=== PATIENT | female | born 1970 | race Two or more races ===

== ENCOUNTER 2018-05-24 21:17 | Inpatient (IN) | END 2018-05-28 18:07 | disposition home or self-care (01) | DRG 807 ==

== ENCOUNTER 2019-01-14 19:45 | Emergency (ER) | payer MEDICAID ==
[~2019-01-14] VITALS: Wt 80.0 kg
[~2019-01-14 19:45] MED LIST: LEVO50TA7 PO
[2019-01-14 23:07] VITALS: BP 122/68; PULSE 82; RESP 16
--- NOTE | 2019-01-15 06:17 | ERD ---
ER Documentation Chief Complaint Chief Complaint vaginal discharge today and 9wks preg. no bleeding no cramping. HPI 48yo 9wks F presents to the ED with complaint of vaginal spotting x 1 day. Pt states to have wiped earlier today and notes spotting, denies clots, pelvic pain, dysuria, or hematuria. No vomiting, diarrhea, or abdominal pain. Denies use or need for pads or tampons. She notes she is current with her pre care, with no complications until now. Pt is otherwise asymptomatic and presents to ensure not complications with d/t spotting. ROS All systems reviewed and are negative except as per history of present illness. Medications Home Meds Reported Medications Levothyroxine Sodium* (Levothyroxine Sodium*) 50 Mcg Tablet, 50 MCG PO BEFORE BREAKFAST, #30 TAB 05/24/18 Allergies Allergies: Coded Allergies: No Known Allergy (Unverified , 05/24/18) PMhx/Soc Medical and Surgical Hx: pt denies Medical Hx, pt denies Surgical Hx Hx Alcohol Use: No Hx Substance Use: No Hx Tobacco Use: No Smoking Status: Never smoker FmHx Family History: No diabetes, No coronary disease, No other Physical Exam Vitals Vital Signs Date Temp Pulse Resp B/P (MAP) Pulse Ox O2 O2 Flow FiO2 Time Delivery Rate 01/14/19 98.6 82 16 122/68 98 Room Air 23:07 (86) 01/14/19 98.1 65 18 125/71 98 19:50 (89) Physical Exam GENERAL: Alert and coherent. Well appearing, non-toxic. No acute distress. HEAD: Normocephalic, atraumatic. EYES: EOMI. PERRL. No conjunctival injection. No scleral icterus. No Discharge NECK: Supple. Full range of motion. Trachea midline. RESPIRATORY: No tachypnea. Clear to auscultation bilaterally. No wheezing, rales or rhonchi. No accessory muscle use. CV: Regular rate and rhythm. No murmurs, rubs, or gallops. ABDOMEN: Soft, non-distended, non-tender. No guarding. No rebound tenderness or rigidity. No masses. Positive bowel sounds in all four quadrants. BACK: Full ROM. No CVA tenderness. EXTREMITIES: No deformity. No clubbing, cyanosis or edema. Equal pulses x 4. SKIN: Warm and dry. No obvious rashes, erythema, or petechiae. NEUROLOGIC: Alert and oriented x3. Appropriate speech, mood and affect. Face is symmetric. Speech is normal. CN II-XII intact. Moves all extremities equally. Ambulates with a strong, steady gait. Result Diagram: 01/14/19212401/14/192124 Results 24 hrs Laboratory Tests Test 01/14/19 21:25 White Blood Count 4.5 10^3/ul Red Blood Count 4.20 10^6/ul Hemoglobin 13.2 g/dl Hematocrit 38.6 % Mean Corpuscular Volume 91.9 fl Mean Corpuscular Hemoglobin 31.4 pg Mean Corpuscular Hemoglobin Concent 34.2 g/dl Red Cell Distribution Width 13.3 % Platelet Count 284 10^3/UL Mean Platelet Volume 9.0 fl Immature Granulocytes % 0.400 % Neutrophils % 50.6 % Lymphocytes % 36.8 % Monocytes % 8.4 % Eosinophils % 2.7 % Basophils % 1.1 % Nucleated Red Blood Cells % 0.0 /100WBC Immature Granulocytes # 0.020 10^3/ul Neutrophils # 2.3 10^3/ul Lymphocytes # 1.7 10^3/ul Monocytes # 0.4 10^3/ul Eosinophils # 0.1 10^3/ul Basophils # 0.1 10^3/ul Nucleated Red Blood Cells # 0.0 10^3/ul Prothrombin Time 12.1 Sec Prothrombin Time Ratio 0.9 INR International Normalized Ratio 0.89 Activated Partial Thromboplast Time 23.9 Sec Urine Color YELLOW Urine Clarity SLIGHTLY CLOUDY Urine pH 6.0 Urine Specific [place] 1.025 Urine Ketones NEGATIVE mg/dL Urine Nitrite NEGATIVE mg/dL Urine Bilirubin NEGATIVE mg/dL Urine Urobilinogen NEGATIVE mg/dL Urine Leukocyte Esterase NEGATIVE [place]/ul Urine Microscopic RBC 1 /HPF Urine Microscopic WBC 3 /HPF Urine Squamous Epithelial Cells FEW /HPF Urine Hemoglobin 1+ mg/dL Urine Glucose NEGATIVE mg/dL Urine Total Protein NEGATIVE mg/dl Urine Test POSITIVE Sodium Level 140 mmol/L Potassium Level 3.6 mmol/L Chloride Level 103 mmol/L Carbon Dioxide Level 27 mmol/L Anion Gap 10 Blood Urea Nitrogen 16 mg/dl Creatinine 0.73 mg/dl Est Glomerular Filtrat Rate mL/min > 60 mL/min Glucose Level 99 mg/dl Calcium Level 9.9 mg/dl Beta HCG, Quantitative 54572.0 mIU/ml Procedures/MDM PROCEDURE: US OB. FINDINGS: A single intrauterine gestational sac is evident. A yolk sac is evident. [place]-rump length: 2.3 cm Gestational sac diameter: 2.3 cm heart rate: 168 beats per minute. Ultrasound estimated gestational age: 9 weeks 0 days No ovarian or adnexal mass lesion is seen. There is no free fluid. Corpus luteum. IMPRESSION: 1. Single live intrauterine with an estimated gestational age of 9 weeks 0 days. This yields an estimated due date of 08/19/2019, concordant with menstrual dates. MDM: 48yo 9wk female presents to ED for evaluation of vaginal spotting x 1 day. Patient is well-appearing, in no distress, non-toxic.In ED patient is hemodynamically stable, no further bleeding or abdo pain. Ultrasound obtained and did not reveal concerning findings for ectopic. US is stable with IUP. Patient was reassured. Laboratory studies were reviewed, stable, Rh A pos. Patient will need to have close follow-up with OB. Threatened miscarriage precautions were given to the pt. Patient remains in no distress, well- appearing, asymptomatic and will be discharged. Differential diagnosis includes but is not limited to spontaneous , threatened , complete , inevitable , ectopic , molar , cervicitis, trauma, ovarian cyst rupture, early intrauterine . Strict ED return precautions discussed. Pt expressed verbal understanding and agreement to treatment plan. All questions addressed and answered. Departure Diagnosis: Primary Impression: Vaginal bleeding in patient at less than 20 weeks ges... Condition: Stable Patient Instructions: Bleeding During Early Referrals: NO PRIMARY,CARE PHYSICIAN (PCP) Additional Instructions: You were seen today for vaginal bleeding. All labs and imaging were negative. At this time you are stable for discharge, however, it is recommended you f/u with you PURCHASING OFFICER for further follow-up and possible work-up. Please return to the ER immediately if you have new or worsening symptoms. MILAGROS CHAN PA-C Jan 15, 2019 06:17
== END 2019-01-14 23:07 | disposition home or self-care (01) ==
LOC: FTE 19:45
DX: O20.9 Hemorrhage in early pregnancy, unspecified (principal); Z3A.09 9 weeks gestation of pregnancy
CPT/HCPCS: 36415; 76801; 80048; 81001; 84702; 84703; 85025; 85610; 85730; 86900; 86901; Z7502

== ENCOUNTER 2019-03-12 06:00 | Inpatient (IN) | payer MEDICAID ==
[~2019-03-12] VITALS: Ht 162.6 cm; Wt 91.3 kg
[2019-03-12 10:40] VITALS: BMI 37.3
[2019-03-12 10:41] VITALS: BP 106/76; PULSE 80; RESP 18
[2019-03-12] MEDS ORDERED: CARBOPROST 250 MCG INJ IM PRN (13:00)
[2019-03-12] MEDS ORDERED: MISOPROSTOL 50 MCG CAPSULE VAG SCH (13:00)
[2019-03-12] MEDS ORDERED: METHYLERGONOVINE 0.2 MG INJ IM PRN (13:00)
[2019-03-12] MEDS ORDERED: MISOPROSTOL 200 MCG TAB VAG PRN (13:00)
[2019-03-12] MEDS ORDERED: MISOPROSTOL 200 MCG TAB PR PRN (13:00)
[2019-03-12] MEDS ORDERED: OXYTOCIN 30 UNITS/LR 500 ML IV SCH ×2 (13:00)
[2019-03-12] MEDS ORDERED: OXYTOCIN 30 UNITS/LR 500 ML IV PRN (13:00)
[2019-03-12] MEDS ORDERED: IBUPROFEN 600 MG TAB PO PRN (13:00)
[2019-03-12] MEDS ORDERED: LIDOCAINE 1% (MPF) 30 ML INJ INJ PRN (13:00)
[2019-03-12] MEDS: LACTATED RINGER'S 1,000 ML IV SCH ×2 (13:29→23:29)
[2019-03-12] MEDS ORDERED: MISOPROSTOL 200 MCG TAB VAG ONE (14:00)
[2019-03-13] MEDS ORDERED: CEFAZOLIN 2 GM/50 ML (PMX) 50 ML IVPB ONE ×2 (03:18→04:00)
[2019-03-13] MEDS ORDERED: OXYTOCIN 30 UNITS/LR 500 ML IV SCH (03:50)
[2019-03-13] MEDS ORDERED: LACTATED RINGER'S 1,000 ML IV* SCH (03:50)
[2019-03-13] MEDS ORDERED: CARBOPROST 250 MCG INJ IM PRN (04:00)
[2019-03-13] MEDS ORDERED: ONDANSETRON 4 MG INJ IV PRN (04:00)
[2019-03-13] MEDS ORDERED: ACETAMINOPHEN 325 MG TAB PO PRN ×2 (04:00)
[2019-03-13] MEDS ORDERED: MISOPROSTOL 200 MCG TAB PR PRN (04:00)
[2019-03-13] MEDS ORDERED: BENZOCAINE 20% 56 ML SPRAY TOP PRN (04:00)
[2019-03-13] MEDS ORDERED: DIBUCAINE 1% 30 GM OINT TOP PRN (04:00)
[2019-03-13] MEDS ORDERED: WITCH HAZEL/GLYCERIN PAD PR PRN (04:00)
[2019-03-13] MEDS ORDERED: MAGNESIUM HYDROXIDE 30ML CUP PO PRN (04:00)
[2019-03-13] MEDS ORDERED: LANOLIN HPA 1 PKT TOP PRN (04:00)
[2019-03-13] MEDS ORDERED: SENNA/DOCUSATE NA (8.6MG/50MG) TAB PO PRN (04:00)
[2019-03-13] MEDS ORDERED: OXYTOCIN 30 UNITS/LR 500 ML IV PRN (04:00)
[2019-03-13] MEDS ORDERED: IBUPROFEN 600 MG TAB PO PRN (04:00)
[2019-03-13] MEDS ORDERED: METHYLERGONOVINE 0.2 MG INJ IM PRN (04:00)
[2019-03-13 05:25] VITALS: BP 118/74; PULSE 82; RESP 16
[2019-03-13 07:00] VITALS: Ht 162.6 cm; Wt 91.3 kg
[2019-03-13 08:46] VITALS: BP 95/58; PULSE 65; RESP 18
[2019-03-13 11:26] VITALS: BP_SYST 102; BP_SYST 110; BP_DIAS 63; BP_DIAS 70; PULSE 100; PULSE 90
[2019-03-13 11:28] VITALS: BP 108/70; PULSE 117
[2019-03-13 15:11] VITALS: BP 101/57; PULSE 77; RESP 18
[2019-03-14] MEDS ORDERED: LEVOTHYROXINE 50 MCG TAB PO SCH (06:00)
== END 2019-03-13 15:47 | disposition home or self-care (01) | DRG 807 ==
LOC: L-D 09:30 → PP2 03-13 05:51
PROVIDERS: ADMIT Obstetrics & Gynecology; ATTEND Obstetrics & Gynecology
PROC: 10E0XZZ Delivery of Products of Conception, External Approach (ICD-10-PCS; principal; 2019-03-13)
DX: O60.12X0 Preterm labor second trimester with preterm delivery second trimester, not applicable or unspecified (principal); Z37.1 Single stillbirth; Z3A.17 17 weeks gestation of pregnancy
CPT/HCPCS: 76815; 80053; 80307; 81001; 85025; 85610; 85730; 86592; 86703; 86803; 86850; 86900; 86901; 88305; J0690; J2590; J7120